=== PATIENT | female | born 1995 ===

== ENCOUNTER → 2017-10-05 | Outpatient (CLI) | payer BC ==
--- NOTE | 2017-10-05 09:18 | DIAGNOSTIC IMAGING REPORT ---
R ANKLE MIN 3 VIEWS CLINICAL HISTORY: RIGHT ANKLE PAIN pain COMPARISON: None. DISCUSSION: The bones and joint spaces appear intact. There is no evidence of fracture, dislocation or bony disease. There is no evidence for soft tissue swelling. IMPRESSION: Negative study. The above report was generated using voice recognition software. It may contain grammatical, syntax or spelling errors. Electronically signed by: Jeff Santoro M.D. 10/05/2017 9:17 AM Dictated Date/Time: 10/05/2017 9:17 AM
== END | disposition home or self-care (01) ==
LOC: C.RDSM 16:44
PROVIDERS: ATTEND Internal Medicine
DX: M25.571 Pain in right ankle and joints of right foot (principal)